=== PATIENT | male | born 1975 | race African-American/Black ===

== ENCOUNTER 2016-08-13 09:49 | Emergency (ER) | payer OTHER ==
[~2016-08-13] VITALS: Ht 185.4 cm; Wt 119.0 kg
[~2016-08-13 09:49] MED LIST: KETOROLAC TROME10 MG PO; NAPROSYN500 MG PO; NOHOMEMEDS; OXYCODONE HCL5 MG PO; TRAMADOL HCL50 MG PO
[2016-08-13] MEDS ORDERED: NORCO 5/3251 TABLET PO (11:08)
[2016-08-13] MEDS ORDERED: VALIUM5 MG PO (11:08)
[2016-08-13] MEDS ORDERED: CANE1 EACH MC (11:39)
[2016-08-13 12:09] VITALS: BP 93/72
== END 2016-08-13 12:10 | disposition home or self-care (01) ==
LOC: EME 09:49
DX: G89.29 Other chronic pain (principal); M54.5 Low back pain
CPT/HCPCS: 99281; 99284; J2270

== ENCOUNTER 2016-09-22 13:15 | Emergency (ER) | payer OTHER ==
[~2016-09-22] VITALS: Ht 185.4 cm; Wt 119.0 kg
[~2016-09-22 13:15] MED LIST changes: +CANE1 EACH MC; +NORCO 5/3251 TABLET PO; +VALIUM5 MG PO
[2016-09-22 14:19] LABS: HEMATOCRIT 40.9 % (38.0-50.0); MCH 30.8 PG (29.0-34.0); MCHC 33.3 G/DL (30.0-36.0); MCV 92.5 FL (86-99); MEAN PLAT.VOLUME 9.8 uM^3 (9.0-12.4); PLATELET COUNT 230 K/uL (156-360); RBC DIS.WIDTH-CV 12.9 % (11.8-14.6); RED BLOOD COUNT 4.42 M/uL (4.00-5.50); WHITE BLOOD COUNT 4.9 K/uL (4.1-10.2)
[2016-09-22 14:32] LABS: CHLORIDE 104 mEq/L (99-109); POTASSIUM 3.5 mEq/L (3.7-5.4); SODIUM 138 mEq/L (136-147)
[2016-09-22 14:34] LABS: GLUCOSE 121 mg/dL (70-99)
[2016-09-22 14:35] LABS: ANION GAP 7 MEQ/L (2-14)
[2016-09-22 14:38] LABS: GFR ESTIMATE (CALCULATED) > 59 mL/min/; UREA NITROGEN (BUN) 11 mg/dL (9-23)
[2016-09-22 15:21] LABS: D-DIMER ELISA 0.59 mg/L FEU (< 0.57)
[2016-09-22 15:50] VITALS: BP 147/87
== END 2016-09-22 19:37 | disposition left against medical advice (07) ==
LOC: EME 13:15
DX: R07.89 Other chest pain (principal); F17.200 Nicotine dependence, unspecified, uncomplicated
CPT/HCPCS: 71020; 80048; 85027; 85379; 93005; 99281; 99284

== ENCOUNTER 2016-10-10 21:06 | Emergency (ER) | payer OTHER ==
[~2016-10-10] VITALS: Ht 185.4 cm; Wt 113.8 kg
[2016-10-10 21:53] LABS: HEMATOCRIT 43.8 % (38.0-50.0); MCH 30.5 PG (29.0-34.0); MCHC 33.8 G/DL (30.0-36.0); MCV 90.1 FL (86-99); MEAN PLAT.VOLUME 9.6 uM^3 (9.0-12.4); PLATELET COUNT 249 K/uL (156-360); RBC DIS.WIDTH-CV 12.7 % (11.8-14.6); RED BLOOD COUNT 4.86 M/uL (4.00-5.50); WHITE BLOOD COUNT 7.6 K/uL (4.1-10.2)
[2016-10-10 22:18] LABS: CHLORIDE 102 mEq/L (99-109); POTASSIUM 3.2 mEq/L (3.7-5.4); SODIUM 139 mEq/L (136-147)
[2016-10-10 22:19] LABS: GLUCOSE 82 mg/dL (70-99)
[2016-10-10 22:21] LABS: ANION GAP 17 MEQ/L (2-14)
[2016-10-10 22:23] LABS: GFR ESTIMATE (CALCULATED) > 59 mL/min/
[2016-10-10 22:24] LABS: UREA NITROGEN (BUN) 11 mg/dL (9-23)
[2016-10-10 22:29] LABS: TROP-I INTERPRETATION NEGATIVE; TROPONIN-I < 0.01 ng/mL (0.0-0.30)
[2016-10-10 23:20] VITALS: BP 121/78
== END 2016-10-10 23:29 | disposition home or self-care (01) ==
LOC: EME 21:06
DX: R07.9 Chest pain, unspecified (principal); F17.200 Nicotine dependence, unspecified, uncomplicated
CPT/HCPCS: 71020; 80048; 84484; 85027; 93005; 99281; 99284

== ENCOUNTER 2016-11-05 09:36 | Emergency (ER) | payer OTHER ==
[~2016-11-05] VITALS: Ht 185.4 cm; Wt 107.8 kg
[2016-11-05] MEDS ORDERED: VALIUM5 MG PO (10:36)
[2016-11-05] MEDS ORDERED: ULTRAM50 MG PO (10:36)
[2016-11-05] MEDS ORDERED: PREDNISONE10 MG PO (10:36)
[2016-11-05 11:09] VITALS: BP 123/76
== END 2016-11-05 11:10 | disposition home or self-care (01) ==
LOC: EME 09:36
DX: M54.5 Low back pain (principal); F17.200 Nicotine dependence, unspecified, uncomplicated
CPT/HCPCS: 99281; 99284; J1100; J1885

== ENCOUNTER 2016-12-07 09:16 | Emergency (ER) | payer OTHER ==
[~2016-12-07] VITALS: Ht 185.4 cm; Wt 109.0 kg
[~2016-12-07 09:16] MED LIST changes: +PREDNISONE10 MG PO; +ULTRAM50 MG PO
[2016-12-07 11:56] LABS: MCH 30.8 PG (29.0-34.0); MCV 90.4 FL (86-99); MEAN PLAT.VOLUME 9.9 uM^3 (9.0-12.4); PLATELET COUNT 247 K/uL (156-360); RBC DIS.WIDTH-CV 12.2 % (11.8-14.6); RBC DIS.WIDTH-SD 40.8 % (39-53); WHITE BLOOD COUNT 6.4 K/uL (4.1-10.2)
[2016-12-07 12:08] LABS: CHLORIDE 96 mEq/L (99-109); POTASSIUM 3.7 mEq/L (3.7-5.4); SODIUM 134 mEq/L (136-147)
[2016-12-07 12:10] LABS: GLUCOSE 111 mg/dL (70-99)
[2016-12-07 12:12] LABS: ANION GAP 20 MEQ/L (2-14)
[2016-12-07 12:14] LABS: ALKALINE PHOSPHATASE 42 IU/L (3-129); GFR ESTIMATE (CALCULATED) > 59 mL/min/
[2016-12-07 12:15] LABS: UREA NITROGEN (BUN) 20 mg/dL (9-23)
[2016-12-07 12:18] LABS: TROP-I INTERPRETATION NEGATIVE; TROPONIN-I < 0.01 ng/mL (0.0-0.30)
[2016-12-07 13:21] VITALS: BP 128/92
== END 2016-12-07 13:26 | disposition home or self-care (01) ==
LOC: EME 09:16
PROVIDERS: Emergency Medicine
DX: B34.9 Viral infection, unspecified (principal); E86.0 Dehydration; F17.200 Nicotine dependence, unspecified, uncomplicated
CPT/HCPCS: 71020; 80053; 84484; 85027; 93005; 99281; 99285; J7030

== ENCOUNTER 2017-09-22 16:30 | Emergency (ER) | payer OTHER ==
[~2017-09-22] VITALS: Ht 185.4 cm; Wt 109.4 kg
[2017-09-22 17:10] LABS: BASOPHIL (%) 0.1 % (0-1); EOSINOPHIL (%) 1.3 % (0-5); EOSINOPHIL COUNT 0.1 K/uL (0-0.3); HEMATOCRIT 41.8 % (38.0-50.0); HEMOGLOBIN 14.3 G/DL (12.5-16.6); IMMATURE GRANULOCYTE (%) 0.6 % (0.0-0.7); LYMPHOCYTE (%) 17.2 % (15-42); LYMPHOCYTE COUNT 1.5 K/uL (1.0-2.8); MCH 31.2 PG (29.0-34.0); MCHC 34.2 G/DL (30.0-36.0); MCV 91.3 FL (86-99); MONOCYTE (%) 6.8 % (3-12); MONOCYTE COUNT 0.6 K/uL (0-0.8); NEUTROPHIL COUNT 6.4 K/uL (1.8-6.4); PLATELET COUNT 245 K/uL (156-360); RBC DIS.WIDTH-CV 12.5 % (11.8-14.6); RBC DIS.WIDTH-SD 41.8 % (39-53); RED BLOOD COUNT 4.58 M/uL (4.00-5.50); WHITE BLOOD COUNT 8.7 K/uL (4.1-10.2)
[2017-09-22 17:19] LABS: ALBUMIN 4.3 g/dL (3.2-4.8); CHLORIDE 105 mEq/L (99-109); POTASSIUM 3.9 mEq/L (3.7-5.4); SODIUM 138 mEq/L (136-147)
[2017-09-22 17:21] LABS: GLUCOSE 156 mg/dL (70-99)
[2017-09-22 17:22] LABS: TOTAL PROTEIN 7.7 g/dL (6.4-8.3)
[2017-09-22 17:23] LABS: TOTAL BILIRUBIN 0.5 mg/dL (0.0-1.0)
[2017-09-22 17:25] LABS: ALKALINE PHOSPHATASE 38 IU/L (3-129); CREATININE 1.3 mg/dL (0.6-1.3); GFR ESTIMATE (CALCULATED) > 59 mL/min/ (58.99-99999)
[2017-09-22 17:26] LABS: UREA NITROGEN (BUN) 13 mg/dL (9-23)
[2017-09-22 17:27] LABS: AST (GOT) 20 IU/L (2-34)
[2017-09-22 17:28] LABS: ALT (GPT) 28 IU/L (3-49)
[2017-09-22 18:45] LABS: AMPHETAMINE NEGATIVE (500 ng/mL); BARBITURATES NEGATIVE (200 ng/mL); BENZODIAZEPINES NEGATIVE (150 ng/mL); BUPRENORPHINE NEGATIVE (10 ng/mL); COCAINE NEGATIVE (150 ng/mL); METHADONE NEGATIVE (200 ng/mL); METHAMPHETAMINE NEGATIVE (500 ng/mL); OPIATES (MORPHINE) NEGATIVE (100 ng/mL); OXYCODONE NEGATIVE (100 ng/mL); PHENCYCLIDINE NEGATIVE (25 ng/mL); PROPOXYPHENE NEGATIVE (300 ng/mL); THC CANNABINOIDS PRESUMPTIVE POSITIVE (50 ng/mL); TRICYCLIC ANTIDEPRESSANTS NEGATIVE (300 ng/mL)
[2017-09-22 20:30] VITALS: BP 124/79
== END 2017-09-22 20:32 | disposition home or self-care (01) ==
LOC: EME 16:30
PROVIDERS: Emergency Medicine
DX: T40.2X1A Poisoning by other opioids, accidental (unintentional), initial encounter (principal); R11.2 Nausea with vomiting, unspecified; R00.0 Tachycardia, unspecified; F12.90 Cannabis use, unspecified, uncomplicated; G89.29 Other chronic pain; Z79.891 Long term (current) use of opiate analgesic; F17.200 Nicotine dependence, unspecified, uncomplicated
CPT/HCPCS: 80053; 84999; 85025; 93005; 99281; 99285; J2405; J7040